=== PATIENT | female | born 1945 | race Caucasian/White ===

== ENCOUNTER → 2017-09-13 08:00 | Outpatient (CLI) | payer MEDICARE, OTHER, SELFPAY ==
--- NOTE | 2017-09-13 08:09 | RAD_ITS ---
STUDY: X-RAY - ABDOMEN/PELVIS REASON FOR EXAM: Female, 72 years old. Kidney stone TECHNIQUE: Two AP supine views of the abdomen and pelvis. COMPARISON: CT 08/05/2016 FINDINGS: Normal visualized lung bases. Clips in the right groin. There is an unremarkable bowel gas pattern. There is no demonstrated free abdominal air. The visualized liver, spleen and kidneys are grossly normal in size and morphology. Normal soft tissue structures. There are diffuse degenerative changes of the visualized lumbar spine. RAD/Abdomen Single View IMPRESSION: No urinary tract calculi are visible. Electronically Signed: Сергей Escobedo MD at 9:53 EDT Tel , Service support ,
== END ==
PROVIDERS: Family Provider Family Medicine; PCP Family Medicine; Visit Provider Urology
DX: N20.0 Calculus of kidney (principal)
CPT/HCPCS: 74018

== ENCOUNTER 2019-09-25 06:47 | Emergency (ER) | payer MEDICARE, OTHER, SELFPAY ==
[2019-09-25 06:48] VITALS: BP 227/95; PULSE 55; RESP 20; TEMP 36; O2SAT 99
--- NOTE | 2019-09-25 07:14 | CT_ITS ---
STUDY: CT ABDOMEN AND PELVIS WITHOUT CONTRAST REASON FOR EXAM: Female, 74 years old. LT FLANK PAIN, HX-KS, HTN, TX RADIATION DOSAGE (If Supplied By Facility): CTDIvol = ( 12.28 ) mGy, DLP = ( 583.87 ) mGycm TECHNIQUE: Transaxial images were obtained from the dome of the diaphragm to the symphysis pubis without oral contrast, and without intravenous contrast. Sagittal and coronal images were reconstructed. Individualized dose optimization techniques were used for this CT. COMPARISON: Comparison is made with prior study dated August 05, 2016. FINDINGS: Stable minimal scarring in the right middle lobe and left lower lobe. Coronary artery calcification. Normal liver. Normal gallbladder and extrahepatic biliary system. Normal spleen. Normal pancreas. Normal bilateral adrenal glands. Punctate calcifications seen in the upper pole calyx of the right kidney. 3 mm calculus is seen in the lower pole calyx of the left kidney. Moderate sized hiatal hernia. Normal small intestine. There are multiple colonic diverticula consistent with diverticulosis. The appendix is visualized and appears normal. There is diffuse atherosclerotic calcification of the abdominal aorta and the major visceral branches, without a demonstrated aneurysm. Normal inferior vena cava. Normal retroperitoneum. A 2 mm rounded calcification is seen at the base of the bladder suggestive of a recently passed calculus. Minimally calcified fibroid uterus. There is a small umbilical hernia containing fat. There are degenerative changes of the visualized lumbar spine. CT/Abdomen/Pelvis without Cont IMPRESSION: 2 mm calculus is seen at the base of the urinary bladder suggestive of a recently passed calculus. Tiny nonobstructive bilateral intrarenal calculi. Sigmoid diverticula. Hiatal hernia. Electronically Signed: Willem Cifuentes, at 8:34 EDT , Service support ,
[2019-09-25 07:22] LABS: Absolute Lymphocyte Count 2.14 X10^3/uL (0.83-4.51); Absolute Neutrophil Count 4.1 X10^3/uL (2.0-7.7); Basophil# 0.05 X10^3/uL; Basophil% 0.7 % (0-1); Eosinophil# 0.16 X10^3/uL; Eosinophils% 2.3 % (0-5); Hematocrit 42.8 % (37-47); Hemoglobin 13.7 g/dL (12.0-15.0); Lymphocyte # 2.14 X10^3/ul (4.0); Lymphocyte % 30.8 % (19-41); Mean Corpuscular Hgb 31.1 pg (27.0-32.0); Mean Corpuscular Volume 97.1 fL (81-99); Mean Platelet Vol. 10.2 fl (6.2-12.0); Monocyte# 0.47 X10^3/uL; Monocyte% 6.8 % (0-10); NRBC Flagged by Analyzer 0 % (0-5); Neutrophil # 4.12 X10^3/uL (2.7-7.7); Neutrophil % 59.3 % (47-70); Platelet Count 251 K/mm3 (150-450); RBC Distribution Width CV 12.7 % (11.6-14.6); RBC Distribution Width SD 45.1 fl (35.1-43.9); Red Blood Count 4.41 M/mm3 (4.2-5.4)
[2019-09-25 07:32] LABS: Anion Gap 7 (5-15); BUN 16 mg/dL (7-18); BUN/Creat Ratio 20.9 RATIO (10-20); Calcium,Total 9.2 mg/dL (8.5-10.1); Chloride 108 mmol/L (98-107); Creatinine, Serum 0.77 mg/dL (0.55-1.02); EST Glomerular Filtration Rate 78 mL/min (>60); Est Glom Filt Rate - Afr Amer 95 mL/min (>60); Estimated Creatinine Clearance 44.41 ml/min; Glucose 151 mg/dL (74-106); Potassium 3.9 mmol/L (3.5-5.1); Sodium Level 143 mmol/L (136-145)
[2019-09-25 08:47] VITALS: BP 141/92; PULSE 54; RESP 18; O2SAT 99
[2019-09-25 09:51] LABS: Bacteria 0 SEEN /hpf (None Seen); Mucous, Urine 0 SEEN /hpf (<or=2+); White Blood Cells 0 SEEN /hpf (0-5)
--- NOTE | 2019-09-25 09:52 | ED.VISSUMM ---
- ER Visit Summary Date of Service: 09/25/19 Chief Complaint: Left flank pain History of Present Illness: The patient is a 74 F who presents with left flank pain that began today. Patient states her pain is sharp and stabbing. Patient admits to some cramping as well. Patient states pain is over the left flank. Patient states this feels similar to prior kidney stones. Patient admits to some nausea and vomiting. Patient denies any hematemesis or coffee-ground emesis. Patient denies any diarrhea, melena, or hematochezia. Patient denies any dysuria or hematuria. Patient denies any fevers or chills. Physical Examination: Vital signs are stable. Patient is afebrile. Patient is in no acute distress. Oral mucosa is pink and moist. Neck is supple. Trachea is midline. There is no JVD. Heart was regular rate and rhythm. Lungs are clear and equal bilaterally. Abdomen is soft. Bowel sounds are normal. There is left CVA tenderness. There is some mild left lower quadrant tenderness. There is no rebound or guarding noted. Radial nerves II through XII are intact. There are no focal motor or sensory deficits noted. Extremities are intact. There is no calf tenderness or edema. Test Results: CT scan of the abdomen and pelvis was obtained. There is a recently passed stone in the bladder. This was interpreted by the radiologist and reviewed by myself. CBC and basic metabolic profile were obtained and were within normal limits. Urinalysis was ordered. No evidence of urinary tract infection. Emergency Department Course and Treatment: Patient was ordered IV fluids, morphine, and Zofran. Patient states she felt like she passed her stone prior to getting any of her medications or IV fluids. Patient did not want them anymore. Patient urinated and passed a stone into the urine cup. Patient was instructed to follow-up with her primary care physician in 5 to 7 days. Patient understood and was agreeable with the plan. All questions were answered. Disposition: Discharge home Impression: Left ureteral calculus This note was generated with [employer] dictation software. It may contain incorrect words, spelling, and punctuation that were not noted in review of the chart prior to signing ED Disposition - Plan for ED Patient: Disposition: Home or Assisted Living Diagnosis: Left ureteral calculus Instructions: ED RENAL STONE Passed Referrals: Bar Marion III, MD [Primary Care Provider] - 5-7 Days
[2019-09-25 10:00] LABS: Color, Urine Straw (Yellow); Glucose, Dipstick Normal (Normal); Ketone-Dipstick Negative (Negative); Leukocyte Esterase-Dipstick Negative /ul (Negative); Nitrite-Dipstick Negative (Negative); Occult Blood-Urine 25 /ul (Negative); Protein-Dipstick Negative (Negative); Urine Bilirubin Dipstick Negative (Negative); Urine Clarity Sl. Cloudy (Clear); Urine Urobilinogen Normal (Normal)
[2019-09-25 10:08] LABS: Red Blood Cells-Urine 0-5 SEEN /hpf (0-5); Squamous Epithelial Cells - UA 0-5 SEEN /hpf (5-10)
[2019-09-25 10:35] VITALS: BP 118/80; PULSE 52; RESP 18; O2SAT 95
== END 2019-09-25 10:43 | disposition home or self-care (01) ==
PROVIDERS: Emergency Provider Emergency Medicine; PCP Family Medicine
DX: N20.1 Calculus of ureter (principal); Z87.442 Personal history of urinary calculi; I10 Essential (primary) hypertension; E03.9 Hypothyroidism, unspecified
CPT/HCPCS: 74176; 80048; 81001; 85025; 96361; 96374; 96375; 99284; J2405

== ENCOUNTER → 2020-10-16 15:00 | Outpatient (CLI) | payer MEDICARE, OTHER, SELFPAY ==
[2020-10-16 16:34] LABS: Absolute Lymphocyte Count 1.96 X10^3/uL (0.83-4.51); Absolute Neutrophil Count 2.6 X10^3/uL (2.0-7.7); Basophil# 0.06 X10^3/uL; Basophil% 1.1 % (0-1); Eosinophil# 0.27 X10^3/uL; Eosinophils% 4.9 % (0-5); Hematocrit 42.9 % (37-47); Hemoglobin 13.8 g/dL (12.0-15.0); Lymphocyte # 1.96 X10^3/ul (0.83-4.51); Lymphocyte % 35.5 % (19-41); Mean Corp Hgb Conc 32.2 g/dL (32-36); Mean Corpuscular Hgb 31.2 pg (27.0-32.0); Mean Corpuscular Volume 96.8 fL (81-99); Mean Platelet Vol. 10.7 fl (6.2-12.0); Monocyte# 0.64 X10^3/uL; Monocyte% 11.6 % (0-10); NRBC Flagged by Analyzer 0 % (0-5); Neutrophil # 2.58 X10^3/uL (2.7-7.7); Neutrophil % 46.7 % (47-70); Platelet Count 250 K/mm3 (150-450); RBC Distribution Width CV 12.8 % (11.6-14.6); Red Blood Count 4.43 M/mm3 (4.2-5.4); White Blood Count 5.5 K/mm3 (4.4-11.0)
[2020-10-16 16:54] LABS: Vitamin D,25 Hydroxy 25.2 ng/mL
[2020-10-16 16:56] LABS: ALB/GLOB Ratio 1.2 RATIO (0.9-2.4); AST(SGOT) 15 U/L (15-37); Alanine Aminotransfer ALT/SGPT 25 U/L (13-56); Alkaline Phosphatase 128 U/L (45-117); Anion Gap 6 (5-15); BUN 17 mg/dL (7-18); BUN/Creat Ratio 20.2 RATIO (10-20); Chloride 106 mmol/L (98-107); Cholesterol 155 mg/dL (200); Creatinine, Serum 0.84 mg/dL (0.55-1.02); EST Glomerular Filtration Rate 70 mL/min (>60); Est Glom Filt Rate - Afr Amer 85 mL/min (>60); Globulin 3.4 g/dL (2.2-4.2); Glucose 102 mg/dL (74-106); High Density Lipoprotein 69 mg/dL; Potassium 4.2 mmol/L (3.5-5.1); Protein, Total 7.4 g/dL (6.4-8.2); Sodium Level 141 mmol/L (136-145); Thyroid Stim Hormone (TSH) 6.23 uIU/mL (0.358-3.74); Triglycerides 135 mg/dL; Troponin-I HS 5.1 pg/mL (3.0-53.7); Very Low Density Lipoprotein 27 mg/dL (5-40)
== END ==
PROVIDERS: PCP Internal Medicine; Referring Provider Nurse Practitioner Family; Visit Provider Nurse Practitioner Family
DX: E55.9 Vitamin D deficiency, unspecified (principal); I10 Essential (primary) hypertension; E03.9 Hypothyroidism, unspecified; E78.5 Hyperlipidemia, unspecified
CPT/HCPCS: 36415; 80053; 80061; 82306; 84443; 84484; 85025

== ENCOUNTER → 2020-10-24 08:08 | Outpatient (CLI) | payer MEDICARE, OTHER, SELFPAY ==
[2020-10-23 11:38] VITALS: BMI 29.7
--- NOTE | 2020-10-24 08:10 | ECHOD_ITS ---
Reason For Study: MURMUR, NEW Procedure This was a 2D Doppler, Color Flow transthoracic echocardiogram. Exam performed in department. Left Ventricle Normal LV size. The estimated ejection fraction is 65 %. Unable to assess diastolic dysfunction. No regional wall motion abnormalities noted. Right Ventricle Normal RV size. Normal systolic function. Atria The left atrium is moderately enlarged. Normal right atrium. No doppler evidence for ASD. Mitral Valve There is moderate to severe mitral annular calcification. There is no mitral valve stenosis. Mild (1+) mitral valve insufficiency. Tricuspid Valve There is no tricuspid stenosis. Trivial tricuspid valve insufficiency. Pulmonary artery systolic pressure is 35 mmHg. Aortic Valve Mild diffuse aortic valve thickening. Trisinus/trileaflet aortic valve. Mild aortic stenosis. No aortic valve insufficiency. Pulmonic Valve There is no pulmonic valvular stenosis. Trivial pulmonic valve insufficiency. Great Vessels Normal aortic root. Pericardium/Pleural No pericardial effusion. MMode/2D Measurements & Calculations LVIDd: 4.4 cm IVSd: 0.96 cm LVOT diam: 2.1 cm LVIDs: 2.6 cm LVPWd: 1.0 cm LVOT area: 3.4 cm2 RVDd: 3.2 cm FS: 40.4 % Ao root diam: 3.3 cm LAV(MOD-bp): 80.7 ml Aortic Valve Planimetry: 1.5 cm2 LAV(MOD-bp) Indexed: 44.6 ml/m2 LAV(MOD-sp2): 73.6 ml LAV(MOD-sp4): 79.5 ml LA dimension(2D): 4.1 cm LA A4 area: 23.0 cm2 RA A4 area: 12.6 cm2 Time Measurements MV dec time: 0.22 sec Doppler Measurements & Calculations MV E max enzo: 76.4 cm/sec Lat Peak E' Enzo: 5.3 cm/sec Med Peak E' Enzo: 3.4 cm/sec MV A max enzo: 108.5 cm/sec E/E' lat: 14.4 E/E' med: 22.3 MV E/A: 0.70 Ao V2 max: 241.7 cm/sec LV V1 max: 105.2 cm/sec SV(LVOT): 92.4 ml Ao max P.4 mmHg LV V1 max P.4 mmHg Ao V2 mean: 178.1 cm/sec LV V1 mean P.3 mmHg Ao mean P.5 mmHg LV V1 mean: 73.1 cm/sec Ao V2 VTI: 61.3 cm LV V1 VTI: 27.2 cm ADRIANA(I,D): 1.5 cm2 ADRIANA(V,D): 1.5 cm2 PA V2 max: 92.2 cm/sec TR max enzo: 270.7 cm/sec TR max P.1 mmHg ECHO/Echo Complete Interpretation Summary The estimated ejection fraction is 65 %. Unable to assess diastolic dysfunction. The left atrium is moderately enlarged. Mild (1+) mitral valve insufficiency. Mild diffuse aortic valve thickening. Mild aortic stenosis. Ordering Physician: Clark Riley Referring Physician: Clark Riley Performed By: Shi Bradford RDCS, RVT
== END ==
PROVIDERS: PCP Internal Medicine; Referring Provider Nurse Practitioner Family; Visit Provider Nurse Practitioner Family
DX: R07.9 Chest pain, unspecified (principal); R01.1 Cardiac murmur, unspecified
CPT/HCPCS: 93005; 93306

== ENCOUNTER → 2021-01-27 11:12 | Outpatient (CLI) | payer MEDICARE, OTHER, SELFPAY | PROVIDERS: PCP Internal Medicine; Referring Provider Physician Assistant; Visit Provider Physician Assistant | DX: Z11.52 Encounter for screening for COVID-19 (principal) | CPT/HCPCS: 87635; U0005; U0003 ==